=== PATIENT | female | born 1945 | race Caucasian/White ===

== ENCOUNTER 2017-07-19 17:12 | Emergency (ER) | payer OTHER ==
[~2017-07-19] VITALS: Ht 157.5 cm; Wt 85.2 kg
[2017-07-19 17:30] VITALS: BP 168/103; PULSE 128; RESP 18; TEMP 98.3; O2SAT 97
--- NOTE | 2017-07-19 17:31 | PD ---
HPI Chief Complaint: Cardiac Complaint Time Seen by Provider: 17:23 Travel History International Travel<30 days: No Contact w/Intl Traveler<30days: No Traveled to known affect area: No History of Present Illness HPI She states her primary care is Dr. Luciano Rubi she does not currently have a member certification manager. Patient states that she has a chronic history of atrial fibrillation there is paroxysmal, and that she is on metoprolol for. Patient states that she also has a history of diabetes for which she is being managing it with cinnamon. 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 I advised patient that I would gladly include those as part of the evaluation for her palpitations. I do not believe that the patient is actually taking her medications on a regular basis. I believe that she is taking them as Needed medication which is not adequate, and she is also not anticoagulated which is also not appropriate. However I do not believe that this is because her physician is not included in these orders but rather because the patient is practicing her own type of medicine. As she made me aware that she does not take her metoprolol very often because it makes her eat a lot, makes her gain weight, and it makes her diabetic. I made the patient aware that taking metoprolol does not make you a diabetic, and I made the patient aware of what is the warning signs of having hypoglycemia those would be obscured if on a beta-ashtyn. Patient states that she has allergy to sulfa, Tylenol, aspirin and Keflex Past medical history significant for hypercholesterolemia, hypertension, diabetes, and atrial fibrillation PFSH Social History Tobacco Use: No Allergies-Medications (Allergen,Severity, Reaction): Coded Allergies: cephalexin (Verified Allergy, Severe, Swelling, 07/19/17) Sulfa (Sulfonamide Antibiotics) (Verified Adverse Reaction, Severe, Vomiting , 07/19/17) acetaminophen (Verified Adverse Reaction, Severe, Rapid HR, 07/19/17) aspirin (Verified Adverse Reaction, Severe, Rapid HR , 07/19/17) Reported Meds & Prescriptions Reported Meds & Active Scripts Active Reported Enalapril (Enalapril Maleate) 10 Mg Tab 10 Mg PO DAILY Metoprolol Tartrate 25 Mg Tab 25 Mg PO BID Review of Systems General / Constitutional: No: Fever Eyes: No: Visual changes HENT: No: Headaches Cardiovascular: Positive: Palpitations Respiratory: No: Shortness of Breath Gastrointestinal: No: Abdominal Pain Genitourinary: No: Dysuria Musculoskeletal: No: Pain Skin: No Rash Neurologic: No: Weakness Psychiatric: No: Depression Endocrine: No: Polydipsia Hematologic/Lymphatic: No: Easy Bruising Physical Exam Narrative GENERAL: SKIN: Warm and dry. HEAD: Atraumatic. Normocephalic. EYES: Pupils equal and round. No scleral icterus. No injection or drainage. ENT: No nasal bleeding or discharge. Mucous membranes pink and moist. NECK: Trachea midline. No JVD. CARDIOVASCULAR: Regular rate and rhythm. Tachycardic RESPIRATORY: No accessory muscle use. Clear to auscultation. Breath sounds equal bilaterally. GASTROINTESTINAL: Abdomen soft, non-tender, nondistended. MUSCULOSKELETAL: Extremities without clubbing, cyanosis, or edema. No obvious deformities. NEUROLOGICAL: Awake and alert. No obvious cranial nerve deficits. Motor grossly within normal limits. Five out of 5 muscle strength in the arms and legs. Normal speech. PSYCHIATRIC: Appropriate mood and affect; insight and judgment normal. Data Data Last Documented VS Vital Signs Date Time Temp Pulse Resp B/P (MAP) Pulse Ox O2 Delivery O2 Flow Rate FiO2 07/19/17 18:30 120 14 138/85 (102) 95 Room Air 07/19/17 18:02 96 07/19/17 17:46 98.3 Orders Orders Electrocardiogram (07/19/17 17:23) Basic Metabolic Panel (Bmp) (07/19/17 17:23) B-Type Natriuretic Peptide (07/19/17 17:23) Complete Blood Count With Diff (07/19/17 17:23) Magnesium (Mg) (07/19/17 17:23) Prothrombin Time / Inr (Pt) (07/19/17 17:23) Act Partial Throm Time (Ptt) (07/19/17 17:23) Troponin I (07/19/17 17:23) Chest, Single Ap (07/19/17 17:23) Ecg Monitoring (07/19/17 17:23) Iv Access Insert/Monitor (07/19/17 17:23) Oximetry (07/19/17 17:23) Metoprolol Tartrate Inj (Lopressor Inj) (07/19/17 17:45) Metoprolol Tartrate Inj (Lopressor Inj) (07/19/17 18:30) Labs Laboratory Tests Test 07/19/17 17:50 White Blood Count 7.4 TH/MM3 Red Blood Count 4.88 MIL/MM3 Hemoglobin 13.6 GM/DL Hematocrit 41.1 % Mean Corpuscular Volume 84.2 FL Mean Corpuscular Hemoglobin 27.9 PG Mean Corpuscular Hemoglobin Concent 33.1 % Red Cell Distribution Width 13.5 % Platelet Count 217 TH/MM3 Mean Platelet Volume 8.5 FL Neutrophils (%) (Auto) 50.8 % Lymphocytes (%) (Auto) 37.7 % Monocytes (%) (Auto) 9.2 % Eosinophils (%) (Auto) 1.9 % Basophils (%) (Auto) 0.4 % Neutrophils # (Auto) 3.8 TH/MM3 Lymphocytes # (Auto) 2.8 TH/MM3 Monocytes # (Auto) 0.7 TH/MM3 Eosinophils # (Auto) 0.1 TH/MM3 Basophils # (Auto) 0.0 TH/MM3 CBC Comment DIFF FINAL Differential Comment Prothrombin Time 10.0 SEC Prothromb Time International Ratio 1.0 RATIO Activated Partial Thromboplast Time 25.2 SEC Blood Urea Nitrogen 16 MG/DL Creatinine 0.60 MG/DL Random Glucose 132 MG/DL Calcium Level 8.7 MG/DL Magnesium Level 2.2 MG/DL Sodium Level 142 MEQ/L Potassium Level 3.8 MEQ/L Chloride Level 109 MEQ/L Carbon Dioxide Level 25.6 MEQ/L Anion Gap 7 MEQ/L Estimat Glomerular Filtration Rate 99 ML/MIN Troponin I LESS THAN 0.02 NG/ML B-Type Natriuretic Peptide 147 PG/ML [facility] Medical Decision Making Medical Screen Exam Complete: Yes Emergency Medical Condition: Yes Medical Record Reviewed: Yes Interpretation(s) EKG shows atrial fibrillation with rapid ventricular rate in the 130s ballpark, there is no motion artifact and there is also no evidence of any STEMI type pattern. Differential Diagnosis Arrhythmia such as atrial flutter versus atrial fib versus sinus tach versus ventricular tachycardia versus anemia versus dehydration versus STEMI Narrative Course CBC shows no leukocytosis, no anemia, normal platelet count. No left shift Coagulation profile is within normal limits First set of cardiac enzymes negative, beta natruretic peptide is 147, all electrolytes are within normal limits with exception of random glucose of 132, however normal creatinine and GFR. Chest x-ray read as left mid and lower lung field atelectasis with mild cardiomegaly per radiologist Due to the fact that the patient's tachycardia retaining remain sustained above 120 and her blood pressure systolic remained at above 160, a second dose of metoprolol IV 10 mg was ordered, however the patient refused it. I advised patient that she has been very difficult throughout this entire time refusing multiple studies multiple therapeutics. Patient is advised she does not have to agree to any of my recommendations however she must accept the consequences. I believe that this patient is poorly managed not because of any other physician but because she herself refuses to do and take medications that she has been prescribed. Patient continues to be in atrial fibrillation, she should be admitted, should be anticoagulated, and counseled about taking her medications on a regular basis. In addition to that patient is also quite hypertensive and she also has been advised as to the need for the continued use of metoprolol. Patient refuses admission and does not want to be admitted even for observation. She is "going home" ...." I am not going to stay in the hospital just so I can convert by myself at around 2 in the morning , because that is what happens every time " patient signed her AMA form after the patient was given full information and disclosure below: AMA: The risks of leaving against medical advice without further evaluation treatment were discussed with the patient. These risks include cardiac dysfunction, cardiac dysrhythmia, possible heart attack, possible stroke or . The patient indicated understanding of these risks and appeared to have the capacity to make this decision. Diagnosis Primary Impression: Palpitation Additional Impressions: A. fib with RVR Hypertension poorly controlled Disposition: 07 AGAINST MEDICAL ADVICE Condition: Clay Darnell MD Jul 19, 2017 17:31
[2017-07-19] MEDS ORDERED: ENAL10TA PO (17:37)
[2017-07-19] MEDS ORDERED: METO25TA3 PO (17:37)
--- NOTE | 2017-07-19 17:42 | RADRPT ---
EXAM DATE/TIME: 07/19/2017 17:32 [facility] COMPARISON: No previous studies available for comparison. INDICATIONS : Palpitations. MEDICAL HISTORY : AFIB SURGICAL HISTORY : None. ENCOUNTER: Initial ACUITY: 1 day PAIN SCORE: 0/10 LOCATION: Bilateral chest FINDINGS: Mild cardiomegaly is noted. Scattered atelectasis is noted within the left mid and lower lung field. The pulmonary vascular pattern is normal. The right lung is clear. CONCLUSION: Left mid and lower lung field atelectasis. Mild cardiomegaly. Kurtis Roman MD on July 19, 2017 at 17:39 Board Certified Radiologist. This report was verified electronically.
[2017-07-19 17:45] VITALS: O2SAT 97
[2017-07-19] MEDS ORDERED: METOPROLOL TARTRATE 5 MG/5 ML VIAL IV PUSH ONE ×2 (17:45→18:30)
[2017-07-19 17:46] VITALS: BP 168/103; PULSE 136; RESP 16; TEMP 98.3; O2SAT 98
[2017-07-19 17:54] LABS: AUTOMATED NEUTROPHIL # 3.8 TH/MM3 (1.8-7.7); BASOPHIL % 0.4 % (0.0-2.0); EOSINOPHIL # 0.1 TH/MM3 (0-0.4); EOSINOPHIL % 1.9 % (0.0-4.0); HEMATOCRIT 41.1 % (35.0-46.0); HEMOGLOBIN 13.6 GM/DL (11.6-15.3); LYMPH % 37.7 % (9.0-44.0); LYMPHOCYTE # 2.8 TH/MM3 (1.0-4.8); MEAN CELL VOLUME 84.2 FL (80.0-100.0); MEAN CORPUSCULAR HEMOGLOBIN 27.9 PG (27.0-34.0); MEAN CORPUSCULAR HGB CONC 33.1 % (32.0-36.0); MEAN PLATELET VOLUME 8.5 FL (7.0-11.0); MONO % 9.2 % (0.0-8.0); MONOCYTE # 0.7 TH/MM3 (0-0.9); NEUT % 50.8 % (16.0-70.0); PLATELET COUNT 217 TH/MM3 (150-450); RED BLOOD COUNT 4.88 MIL/MM3 (4.00-5.30); RED CELL DISTRIBUTION WIDTH 13.5 % (11.6-17.2); WHITE BLOOD COUNT 7.4 TH/MM3 (4.0-11.0)
[2017-07-19 18:02] VITALS: BP 162/90; PULSE 118; RESP 18
[2017-07-19 18:07] LABS: CHLORIDE 109 MEQ/L (98-107); SODIUM (NA) 142 MEQ/L (136-145)
[2017-07-19 18:09] LABS: CALCIUM 8.7 MG/DL (8.5-10.1)
[2017-07-19 18:10] LABS: BICARBONATE 25.6 MEQ/L (21.0-32.0); BLOOD UREA NITROGEN 16 MG/DL (7-18); GLUCOSE,RANDOM 132 MG/DL (74-106); MAGNESIUM 2.2 MG/DL (1.5-2.5)
[2017-07-19 18:13] LABS: GLOMERULAR FILTRATION RATE 99 ML/MIN (>89)
[2017-07-19 18:15] VITALS: BP 138/88; PULSE 114; RESP 16; O2SAT 95
[2017-07-19 18:18] LABS: TROPONIN I LESS THAN 0.02 NG/ML (0.02-0.05)
[2017-07-19 18:30] VITALS: BP 138/85; PULSE 120; RESP 14; O2SAT 95
--- NOTE | 2017-07-20 16:29 | EKG ---
Date Performed: 07/19/2017 Time Performed: 17:30:28 PTAGE: 71 years EKG: ATRIAL FIBRILLATION WITH RAPID VENTRICULAR RESPONSE LOW QRS VOLTAGE IN PRECORDIAL LEADS PRO BABLE INFERIOR MYOCARDIAL INFARCTION ABNORMAL ECG NO PREVIOUS TRACING DOCTOR: Lisa Servin Interpretating Date/Time 07/20/2017 16:27:27
== END 2017-07-19 19:00 | disposition left against medical advice (07) ==
LOC: PHED 17:12
DX: R00.2 Palpitations (principal); I48.0 Paroxysmal atrial fibrillation; I10 Essential (primary) hypertension; Z53.29 Procedure and treatment not carried out because of patient's decision for other reasons; E78.00 Pure hypercholesterolemia, unspecified; E11.9 Type 2 diabetes mellitus without complications; Z88.2 Allergy status to sulfonamides; Z79.899 Other long term (current) drug therapy
CPT/HCPCS: 71045; 80048; 83735; 83880; 84484; 85025; 85610; 85730; 93005; 96374